=== PATIENT | female | born 1975 | race Asian ===

== ENCOUNTER → 2019-07-07 12:36 | Outpatient (CLI) | payer OTHER, SELFPAY ==
--- NOTE | 2019-07-07 | DI.US.S_ITS ---
PROCEDURE: US OB <= 14 WEEKS FETUS INDICATIONS: INITIAL SIZING AND DATING OUTSIDE/PRIOR DATING DATA: Last menstrual period (LMP): Not available. LMP-based estimated date of delivery (GISELL): Not available. First dating scan (date and location): 07/07/19. Estimated date of delivery (GISELL) from first dating scan: 01/04/20. TECHNIQUE: Real-time scanning was performed of the fetus and maternal pelvic organs, with image documentation. Endovaginal scanning was also performed to better visualize the fetus and maternal ovaries. COMPARISON: None. FINDINGS: Embryo: [place]et[place]-Laager rump length 8.8 cm correlates with a gestational age of 14 weeks 5 days and the BPD and head circumference of 2.4 and 8.8 cm each also correlates with a gestational age of 14 weeks 0 days. The abdominal circumference of 7.7 cm correlates with 14 weeks 1 day and the femur length of 1.5 cm correlates with 14 weeks 3 days. Composite gestational age therefore is 14 weeks 1 day, plus or -10 days. Measurement variability in dating: +/- 4 weeks by LMP, +/- 7 days by mean sac diameter (use before 6 weeks gestation if crown-rump length not able to be measured), +/- 5 days by crown-rump length (up to 8 weeks 6 days gestation), +/- 7 days by crown-rump length (up to 13 weeks 6 days gestation). Maternal organs: Ovaries not seen due to bowel gas. Limited images through the kidneys demonstrate no hydronephrosis. IMPRESSION: 14 week 1 day gestational age, with delivery date projected to be centered on 01/04/20. Followup anatomic survey at 20 weeks gestation is recommended. Maternal ovaries not seen due to bowel gas. Dictated by: Lance Gupta M.D. on 07/07/2019 at 14:44 Approved by: Lance Gupta M.D. on 07/07/2019 at 15:10
== END ==
PROVIDERS: Referring Provider Family Medicine; Visit Provider Family Medicine
DX: Z36.87 Encounter for antenatal screening for uncertain dates (principal); Z3A.14 14 weeks gestation of pregnancy
CPT/HCPCS: 76801

== ENCOUNTER 2019-08-12 15:14 | Outpatient (CLI) | payer OTHER, SELFPAY ==
--- NOTE | 2019-08-12 15:22 | DI.US.S_ITS ---
PROCEDURE: US OB LIMITED INDICATIONS: UNABLE TO GET HEART TONES OUTSIDE/PRIOR DATING DATA: Last menstrual period (LMP): Not available. LMP-based estimated date of delivery (GISELL): Not available. First dating scan (date and location): 07/07/19. Estimated date of delivery (GISELL) from first dating scan: 01/04/20. TECHNIQUE: Real-time scanning was performed of the fetus, with image documentation. Endovaginal scanning: Not needed COMPARISON: None. FINDINGS: A single living intrauterine gestation is present. Presentation: Vertex. Placenta: Placental position is anterior, without previa. Amniotic fluid index: 13.3 cm, normal range is 5-24 cm. heart rate: No cardiac activity seen despite prolonged imaging. Maternal cervical canal: 3.6 cm long. Normal lower limit is 2.5 cm. Estimated gestational age from initial scan: 19 weeks 2 days but current limited survey diagnosis demise with age estimated at 16 weeks 5 days.. IMPRESSION: demise. 16 week 5 day gestational age by limited growth parameters currently, projected growth parameters from earlier OB ultrasound would project current age at 19 weeks 2 days. Dictated by: Lance Gupta M.D. on 08/12/2019 at 16:31 Approved by: Lance Gupta M.D. on 08/12/2019 at 16:34
== END 2019-08-12 16:21 | disposition home or self-care (01) ==
LOC: LABOR 15:40 → OB 08-14 11:57
PROVIDERS: Referring Provider Family Medicine; Visit Provider Family Medicine
DX: O36.8320 Maternal care for abnormalities of the fetal heart rate or rhythm, second trimester, not applicable or unspecified (principal); Z3A.19 19 weeks gestation of pregnancy
CPT/HCPCS: 76815; G0378; G0379

== ENCOUNTER 2019-08-14 07:07 | Inpatient (IN) | payer OTHER, SELFPAY ==
[2019-08-14] VITALS (7 sets, daily range): BP systolic 115–127; BP diastolic 65–76; PULSE 66–73; RESP 14–16; TEMP 36.6–37.4; O2SAT 96–99
--- NOTE | 2019-08-14 | PATH_ITS ---
[facility] Accession Number: [id number] . 01 Material submitted: . placenta - RETAINED PLACENTA . 01 Clinical history: . ; 18-WEEK DEMISE. . 02 Diagnosis: Retained Placenta: Placenta parenchyma: (Weight 85 grams, and multiple fragments that measure 22 grams, 107 grams in aggregate measurement). Chorionic villous maturation is consistent with an immature placenta. Moderate intra- and intervillous fibrin is present. Patchy regions of infarction are present (less than 5% of placental disk volume). Possible patchy villitis is present with scattered single cell necrosis and calcification, nonspecific. . Membranes: Rupture site indeterminate by gross examination. Membrane insertion indeterminate by gross examination. Chorioamnionitis is present. . Umbilical cord: Length: 17.7 cm. Attached 1.0 cm from the placental disk margin. Three vessels present. Funisitis is present. [facility] 08/20/2019 1343 Local . 02 Electronically signed: . Ijeoma Gramajo MD, Pathologist NPI- [id number] . 01 Gross description: . Received in formalin, labeled retained placenta, 18 wk demise, is a partially intact placenta which includes the placental disc (85 grams, 10.2 x 7.0 x 2.0 cm), membranes, and umbilical cord (length-17.7 cm, diameter-0.6 x 0.3 cm), and multiple fragments of red-brown soft tissue (22 grams, 7.0 x 4.0 x 2.0 cm in aggregate). The membranes are smooth, shiny, semi-translucent and torn and ragged. The rupture site cannot be determined. The umbilical cord is attached 1.0 cm from the edge of the placenta and contains three vessels. The surface is megan and shiny with no evidence of meconium identified. The maternal surface is dark maroon and partially torn and ragged. The body is spongy with nodules, masses or lesions identified. The tissue fragments are unremarkable. No fetus is present. Section code: (A1, A2) edge of placenta with membranes, motor vehicle representative; (A3) umbilical cord, motor vehicle representative serial sections; (A4-A6) placenta, three full-thickness cross-sections; (A7) tissue fragments, motor vehicle representative. ([id number]) /MRV 08/19/2019 1138 Local . 02 Pathologist provided ICD-10: O73.1, O41.1011 . 02 CPT . 549044 Performed at: 01 [facility] [address] [facility] [place], [place], [place] [id number] MD Sinan Galeana MD Phone: [phone] Performed at: 02 [facility] [address] [place], [place] [id number] MD Iris Roberson MD Phone: [phone]
--- NOTE | 2019-08-14 | DI.US.S_ITS ---
PROCEDURE: US PELVIC LIMITED INDICATIONS: RETAINED PLACENTA TECHNIQUE: This study was performed in the operating room for the assistance of Dr. Hernandez. COMPARISON: [facility], OB LIMITED, 08/12/2019, 15:40. FINDINGS: On the initial images, there are abnormal hyperechoic products of conception seen within the lower uterine segment. On the final images (labeled post), no definite retained products of conception can be seen. Apparent gas and fluid can be seen, however. IMPRESSION: Intraoperative study demonstrating retained products of conception at the beginning of the examination and resolution of retained products of conception upon the completion of the examination. Note: No significant discrepancy from the preliminary report. Dictated by: David Sargent M.D. on 08/15/2019 at 7:56 Approved by: David Sargent M.D. on 08/15/2019 at 8:00
[2019-08-14] MEDS: LACTATED RINGERS 1,000 ML 100 ML IV ×2 (08:56→18:00)
[2019-08-14] MEDS: miSOPROStoL 200 MCG TABLET 800 MCG VAG (08:58)
[2019-08-14] MEDS: LACTATED RINGERS 1,000 ML 42 ML IV (09:00)
[2019-08-14 09:14] LABS: Add Manual Diff / Slide Review NO; Basophils Absolute Auto 0 /uL (0-100); Basophils Percent Auto 0.4 % (0-2); Eosinophils Absolute Auto 300 /uL (0-450); Hematocrit 34.7 % (36-46); Hemoglobin 12.1 g/dL (12.0-16.0); Lymphocytes Absolute Auto 1600 /uL (1100-4500); Lymphocytes Percent Auto 23.1 % (25-40); Mean Corpuscular Hemoglobin 33.4 PG (26-34); Mean Corpuscular Volume 95.4 fL (80-100); Monocytes Absolute Auto 400 /uL (0-900); Monocytes Percent Auto 6.1 % (3-14); Neutrophils Absolute Auto 4400 /uL (1500-7000); Neutrophils Percent Auto 65.4 % (50-75); Platelet Count 282 X10^3/uL (150-400); Red Blood Cell Count 3.64 X10^6/uL (4.0-5.2); White Blood Cell Count 6.7 X10^3/uL (4.5-11.0)
[2019-08-14 10:57] LABS: COVID19 -Nasal RAPID Negative (Negative)
[2019-08-14] MEDS: miSOPROStoL 200 MCG TABLET 400 MCG PO ×3 (12:16→19:18)
--- NOTE | 2019-08-14 12:55 | PM.HP.1 ---
History of Present Illness History of Present Illness Date Patient Seen: 08/14/19 Time Patient Seen: 07:15 Date of Onset of Symptoms: 08/12/19 Chief complaint: Narrative: Patient is a 43-year-old who has had normal progression of . She had a normal early with no bleeding or change. Early ultrasound for dating was normal. She had a normal cell free DNA. She had had no complaints or problems. [place] like she had felt baby move. No bleeding. No pain. She was seen on Saturday and no heart tones were able to be identified. Ultrasound showed a demise with says approximately 16 week . No other significant change. Patient otherwise has no major medical history. Has had 4 previous children all 39-40 weeks period without complications all vaginal. Past medical history significant for elevated TSH Past surgical history is negative. B-positive blood type Social history lives with and children. No drugs no alcohol. Denies smoking. Patient History Family & Social History Tobacco & Substance use: Smoking Status Never smoker Meds Home Medications and Allergies Allergies Allergy/AdvReac Type Severity Reaction Status Date / Time Sulfa (Sulfonamide AdvReac Verified 08/14/19 10:32 Antibiotics) Review of Systems Review of Systems ROS: Yes All systems reviewed with the patient and are negative except as otherwise documented Exam Vital Signs (past 8 hours): - 08/14/19 10:29 Blood Pressure 125/65 Narrative Exam Narrative: Alert smiling female no acute distress. Lungs are clear. Heart regular in rhythm. Abdomen is soft positive bowel sounds nontender heart tones are negative. Fundus is approximately 20 cm. Uterus is nontender. Extremities without cyanosis clubbing edema. Objective Labs Result Diagrams: 08/14/19 08:40 Labs: Laboratory Results - last 24 hr 08/14/19 08/14/19 08/14/19 08:40 08:40 09:55 WBC 6.7 RBC 3.64 L Hgb 12.1 Hct 34.7 L MCV 95.4 MCH 33.4 MCHC 35.0 RDW 13.0 Plt Count 282 Neut % (Auto) 65.4 Lymph % (Auto) 23.1 L Fountain % (Auto) 6.1 Eos % (Auto) 5.0 H Baso % (Auto) 0.4 Neut # (Auto) 4400 Lymph # (Auto) 1600 [place] # (Auto) 400 Eos # (Auto) 300 Baso # (Auto) 0 COVID-19 PCR Negative Blood Type B Positive Antibody Screen Negative Assessment & Plan Assessment & Plan narrative: demise approximately 16 weeks. Discussed with OBGYN. Cytotec 800 initial old vaginally and then 400 Q 3 hours for 4 doses. Hopefully will deliver in that time. We discussed expectations. Pain control as needed.
--- NOTE | 2019-08-14 17:23 | PM.PROC.1 ---
Procedures Date/Time Date of procedure: 08/14/19 Time of procedure: 17:24 General Procedure description: Patient had been given 3 doses of misoprostol. Had felt pressure but minimal pain. Delivered intact fetus which had been for some time. It started to necrosis. No obvious defect. No other changes. Patient otherwise is feeling well. No other changes. Minimal bleeding. Discussed with Dr. Monreal. Recommends waiting at least a few hours to see if she can pass it herself. Have 2 hours before we get to the point where her S the process tool is done. No other change. Will follow closely. Family does not want . Family does not want any other testing done. Will re-evaluate
--- NOTE | 2019-08-14 20:47 | PM.PREOP ---
Pre-operative Note COVID-19 COVID-19 status: Negative Result date/Date tested (Pos, Neg/Pending): 08/14/19 Interval Note History & Physical reviewed/Exam performed by Physician: Yes Changes to H&P: No H&P completed within 30 days and has changed as indicated here:: This patient is a 43yo admitted for medical induction of labor for 16 week demise. The patient underwent induction with cytotec per the usual protocol, and delivered shortly after 17:00. The patient had minimal vaginal bleeding and was hemodynamically stable, but the placenta did not deliver spontaneously despite ongoing admission of cytotec. The patient was consented for dilation and curettage under ultrasound guidance, with risk of perforation with damage to bowel and bladder, hemorrhage, and infection discussed. Patient vocalized understanding, and informed consent was obtained by Dr. Mahoney. - 200mg IV doxycycline prior to OR - US and OR crew en route - T&S ordered, hgb 12.1
[2019-08-14] MEDS: DOXYCYCLINE 200 MG in SODIUM CHLORIDE 0.9% 250 ML IV (21:00)
--- NOTE | 2019-08-14 21:04 | P.PN_ITS ---
Subjective Subjective Date Patient Seen: 08/14/19 Time Patient Seen: 21:04 Interval history: Patient overall feeling well bleeding. No pain. Occasional contractions. Exam Narrative Exam Narrative: Alert smiling female in no acute distress Lungs clear. Heart regular rate and rhythm. Abdomen is benign. Minimal bleeding with cord in place. Objective Labs Result Diagrams: 08/14/19 08:40 Labs: Laboratory Results - last 24 hr 08/14/19 08/14/19 08/14/19 08:40 08:40 09:55 WBC 6.7 RBC 3.64 L Hgb 12.1 Hct 34.7 L MCV 95.4 MCH 33.4 MCHC 35.0 RDW 13.0 Plt Count 282 Neut % (Auto) 65.4 Lymph % (Auto) 23.1 L Swisher % (Auto) 6.1 Eos % (Auto) 5.0 H Baso % (Auto) 0.4 Neut # (Auto) 4400 Lymph # (Auto) 1600 Swisher # (Auto) 400 Eos # (Auto) 300 Baso # (Auto) 0 COVID-19 PCR Negative Blood Type B Positive Antibody Screen Negative Crossmatch See Detail Assessment & Plan Assessment & Plan narrative: Sixteen week demise. Fetus is delivered. Retained products. Discussed with Dr. roman. She agree fully will do a D&C at this time. Discussed with patient. Discussed risks benefits expectations. Consent was signed. Questions were answered. Probable home tonight. She will follow-up with me on Saturday next week. She has my phone number will call me if any issues during the weekend
--- NOTE | 2019-08-14 21:14 | SUR.OPER ---
Lithotomy on padded OR bed, head on pillow, arms secured on padded arm boards at <90 degrees abduction. Legs secured in padded yellow fins stirrups.
--- NOTE | 2019-08-14 22:28 | PM.OP.1 ---
Operative Date/Time/Diagnoses Date of procedure: 08/14/19 Time of procedure: 21:45 Pre-op diagnosis: retained placenta after 18 week loss and induction Post-op diagnosis: same Procedure & Clinicians Procedure: manual removal of retained placenta, dilation and curettage Same procedure as scheduled: Yes Indications: retained placenta Surgeon: Christel Hernandez [employer] Application Consultant: Basilia Haley Anesthesia Type: General Operative Notes Findings: Normal vulva and vagina. Placenta passing through cervix at time of procedure, otherwise normal appearing cervix. Uterus well involuted at conclusion of case, as confirmed with bedside ultrasound. Specimen(s): other (retained products of placenta) Estimated Blood Loss (mL): 100 Blood products transfused: none Procedure in detail: After informed consent was obtained, the patient was taken to the PACU where general anesthesia was obtained. She was placed in the dorsal lithotomy position, she was prepped and draped in the usual sterile fashion, and a straight catheterization was performed. The placenta was noticed to be protruding from the introitus, and was gently manually removed from the cervix. Bedside transabdominal ultrasound was performed, revealing a small amount of retained placenta and clot in the lower uterine segment. A 12 mm suction tip was gently advanced to the uterine fundus under ultrasound guidance, attached to suction, Guille into the green, gently rotated and withdrawn to remove this blood and placenta. A small amount of clot remained in the lower uterine segment, which was removed in the same manner with suction. The patient was admitted to had 0.2 mg IM Methergine and 20 units of Pitocin, and gentle massage of the lower uterine segment was performed. After a few minutes with no ongoing vaginal bleeding, repeat transabdominal ultrasound was performed and showed a thin endometrial stripe throughout the uterus, with no evidence of retained products of conception. The patient tolerated the procedure well, and was taken to PACU and then returned to the center. The patient received 200mg IV doxycycline at the beginning of the case, and was confirmed to be RH positive. IV fluids 400ccs Complications: none Post-operative Condition: stable Disposition: PACU Plan for aftercare: Patient to be monitored on L&D until meeting postoperative goals and stable for discharge. Patient desires discharge tonight, was counselled on precautions for return including bleeding soaking more than 2 pads/hour for 2 hours, increasing pain, nausea, vomiting, fevers, chills, or foul smelling discharge.
== END 2019-08-15 00:23 | disposition home or self-care (01) | DRG 807 ==
PROVIDERS: Obstetrics & Gynecology; Admitting Provider Family Medicine; Referring Provider Family Medicine; Visit Provider Family Medicine
PROC: 10E0XZZ Delivery of Products of Conception, External Approach (ICD-10-PCS; CPT 58120; principal; 2019-08-14 17:45)
DX: O36.4XX0 Maternal care for intrauterine death, not applicable or unspecified (principal); Z37.1 Single stillbirth; O73.0 Retained placenta without hemorrhage; Z3A.18 18 weeks gestation of pregnancy; Z11.59 Encounter for screening for other viral diseases
CPT/HCPCS: 59160; 59414; 76857; 85025; 86850; 86900; 86901; 87635; G0379; J1100; J2250; J2405; J2590; J2704; J3010; S0191

== ENCOUNTER → 2022-01-16 08:25 | Outpatient (CLI) | payer OTHER, SELFPAY ==
--- NOTE | 2022-01-16 | DI.MG.S_ITS ---
BILATERAL DIGITAL SCREENING MAMMOGRAM 3D/2D WITH CAD: 01/16/2022 CLINICAL: Routine screening. Family history of breast cancer. Comparison is made to exam dated: 03/07/2017 mammogram - [facility]. Both breasts are heterogeneously dense, which may obscure small masses (category c / 51-75% glandular tissue). Current study was also evaluated with a Computer Aided Detection (CAD) system. No significant masses, calcifications, or other findings are seen in either breast. There has been no significant interval change. IMPRESSION: NEGATIVE There is no mammographic evidence of malignancy. A 1 year screening mammogram is recommended. Based on the Tyrer Cuzick model (a risk assessment model) the patient's lifetime risk is 11.5% and her 10 year risk is 2.5%. According to the ACR, ACS, and NCCN guidelines, an annual breast MRI exam along with mammogram is recommended if the patient's lifetime risk is 20% or greater. This exam was interpreted at Station ID: [id number]. NOTE: For mammograms, a report in lay terms will be sent to the patient. Approximately 15% of breast malignancies will not be visualized mammographically. In the management of a palpable breast mass, a negative mammogram must not discourage biopsy of a clinically suspicious lesion. Electronically Signed By: Cory shaver/jacob:01/16/2022 09:01:14 letter sent: Normal Exam ACR BI-RADS Category 1: Negative [id number]
== END ==
PROVIDERS: PCP Family Medicine; Referring Provider Family Medicine; Visit Provider Family Medicine
DX: Z12.31 Encounter for screening mammogram for malignant neoplasm of breast (principal); Z80.3 Family history of malignant neoplasm of breast
CPT/HCPCS: 77063; 77067

== ENCOUNTER → 2024-02-13 11:28 | Outpatient (CLI) | payer OTHER, SELFPAY ==
--- NOTE | 2024-02-13 11:29 | DI.MG.S_ITS ---
BILATERAL DIGITAL SCREENING MAMMOGRAM 3D/2D WITH CAD: 02/13/2024 CLINICAL: Routine screening. Comparison is made to exams dated: 01/16/2022 mammogram - [facility] and 03/07/2017 mammogram - [facility]. The breasts are heterogeneously dense, which may obscure small masses (category c / 51-75% glandular tissue). Current study was also evaluated with a Computer Aided Detection (CAD) system. No significant masses, calcifications, or other findings are seen in either breast. There has been no significant interval change. IMPRESSION: NEGATIVE There is no mammographic evidence of malignancy. A 1 year screening mammogram is recommended. Based on the Tyrer Cuzick model (a risk assessment model) the patient's lifetime risk is 10.0% and her 10 year risk is 2.3%. According to the ACR, ACS, and NCCN guidelines, an annual breast MRI exam along with mammogram is recommended if the patient's lifetime risk is 20% or greater. This exam was interpreted at Station ID: [id number]. NOTE: For mammograms, a report in lay terms will be sent to the patient. Approximately 15% of breast malignancies will not be visualized mammographically. In the management of a palpable breast mass, a negative mammogram must not discourage biopsy of a clinically suspicious lesion. Electronically Signed By: Paula Emery M.D., Ph.D. homar/jacob:02/13/2024 22:01:20 letter sent: Normal Exam ACR BI-RADS Category 1: Negative
== END ==
PROVIDERS: PCP Family Medicine; Referring Provider Family Medicine; Visit Provider Family Medicine
DX: Z12.31 Encounter for screening mammogram for malignant neoplasm of breast (principal); R92.333 Mammographic heterogeneous density, bilateral breasts
CPT/HCPCS: 77063; 77067